=== PATIENT | male | born 1965 | race African-American/Black ===

== ENCOUNTER 2021-01-15 17:19 | Emergency (ER) | payer BC, OTHER ==
[2021-01-15] MEDS ORDERED: Sodium Chloride 0.9% 2.5 ML Syringe FLUSH PRN (17:20)
[2021-01-15] MEDS ORDERED: Sodium Chloride 0.9% 10 ML Syringe FLUSH PRN (17:20)
--- NOTE | 2021-01-15 17:23 | EDM.PDOC ---
ED HPI GENERAL MEDICAL PROBLEM - General Chief Complaint: Abdominal Pain Stated Complaint: ABDOMINAL PAIN, WALK IN CLINIC REFERRAL Time Seen by Provider: 01/15/21 17:20 Source of Information: Reports: Patient History Limitations: Reports: No Limitations - History of Present Illness INITIAL COMMENTS - FREE TEXT/NARRATIVE: HISTORY AND PHYSICAL: History of present illness: Patient is a 55-year-old male who presents to the emergency room with complaints of right lower quadrant pain x1 week. He states the pain is progressively gotten worse. He attempted to go to the walk-in clinic but was informed he should come to the emergency room to rule out appendicitis. Patient denies any fever, chills, headache, change in vision, syncope or near syncope. Denies any chest pain, back pain, shortness of breath or cough. Denies any nausea, vomiting, diarrhea, constipation or dysuria. Has not noted any blood in urine or stool. Denies any testicular pain, redness or swelling. Patient has been eating and drinking appropriately. Review of systems: As per history of present illness and below otherwise all systems reviewed and negative. Past medical history: As per history of present illness and as reviewed below otherwise noncontributory. Surgical history: As per history of present illness and as reviewed below otherwise noncontributory. Social history: See social history for further information Family history: As per history of present illness and as reviewed below otherwise noncontributory. Physical exam: General: Well developed and well nourished 55 year old male. Alert and orientated x 3. Nontoxic in appearance and in no acute distress. Vital signs are stable and have been reviewed by me. Nursing notes were reviewed. HEENT: Atraumatic, normocephalic, pupils equal and reactive bilaterally, negative for conjunctival pallor or scleral icterus, mucous membranes moist, trachea midline. No drooling or trismus noted. No meningeal signs. No hot potato voice noted. Lungs: Clear to auscultation bilaterally. No wheezes, rales, or rhonchi. Chest nontender. Normal work of breathing, no accessory muscles used. Heart: S1S2, regular rate and rhythm without overt murmur, gallops, or rubs. No JVD. No peripheral edema Abdomen: Soft, nondistended, right sided abd tenderness without rebound tenderness. Normoactive bowel sounds. Negative for masses or costovertebral tenderness. Pelvis: Stable nontender. Skin: Intact, warm, dry. No lesions or rashes noted. Hematologic: No petechiae or purpra. Mucosa appropriate color and normal nail bed color and refill. Extremities: Atraumatic, moves all extremities per self without difficulty or deficits, negative for cords or calf pain. Neurovascular unremarkable. Neuro: Awake, alert, oriented. Cranial nerves II through XII unremarkable. Cerebellum unremarkable. Motor and sensory unremarkable throughout. Exam nonfocal. Psychiatric: Mood and affect are appropriate. Normal thought process. Answering questions appropriately. Notes: *This patient was seen and evaluated during the 2019 SARS-CoV-2 novel coronavirus pandemic period. Community viral transmission is ongoing at time of this encounter and the emergency department is operating under pandemic response procedures. Lab work is unremarkable. CT shows a 1.7 cm left renal calculus causing moderate isolated upper pole hydronephrosis. An additional nonobstructive left renal calcification and an apparent miniscule nonobstructive right renal calcification. No evidence of diverticulitis, bowel obstruction or gross appendicitis. Borderline dilatation of the appendix appears to be related to mild distention by luminal gas, without periappendiceal changes. A 7 mm enhancing focus in the pancreatic head. A small neuroendocrine neoplasm should be excluded. Bladder wall thickening, partially related to under distention, however concerning for cystitis. I have talked with the patient about today's findings, in addition to providing specific details for plan of care. Reassessment at the time of disposition demonstrates that the patient is in no acute distress. The patient is stable for discharge, counseling was provided and we discussed in great detail signs and symptoms that would prompt them to return to the Emergency Department. Medication, follow up and supportive care measures were reviewed and discussed. Voices understanding and is agreeable to plan of care. Denies any further questions or concerns at this time. Diagnostics: CBC, CMP, Lipase, UA, CT abd/pelvis Therapeutics: IV fluids, Toradol Prescription: Tylenol #3 Impression: Kidney stone Plan: 1. You were evaluated today on an emergent basis. Your lab work is unremarkable. You do have a nonobstructing kidney stone on the left and right. Make sure you are drinking plenty of fluids to help this pass. You have borderline dilatation of the appendix although they are not calling this appendicitis. If your symptoms should worsen, new symptoms develop or any of the signs and symptoms we discussed should arise please return to the emergency room or call 911 (if needed). 2. You can alternate Tylenol and ibuprofen as needed for pain and fever management. 3. We encourage you to follow up with your primary care provider and/or recommended specialist in the next few days for re-evaluation and further care/management. Definitive disposition and diagnosis as appropriate pending reevaluation and review of above. RLQ Pain Score (Numeric/FACES): 7 - Related Data Allergies Allergy/AdvReac Type Severity Reaction Status Date / Time No Known Allergies Allergy Verified 01/15/21 17:38 Home Meds: Home Meds Acetaminophen/Codeine [Tylenol with Codeine No.3 300MG/30MG] 1 tab PO Q4H PRN #20 tab 01/15/21 [Rx] Omeprazole 1 tab PO DAILY 01/15/21 [History] Omeprazole 40 mg PO DAILY 01/15/21 [History] ED ROS GENERAL - Review of Systems Review Of Systems: Comprehensive ROS is negative, except as noted in HPI. ED EXAM, GI/ABD - Physical Exam Exam: See Below (See dictation) Course - Vital Signs Last Recorded V/S: Last Vital Signs Temp 98.2 F 01/15/21 18:59 Pulse 78 01/15/21 18:59 Resp 18 01/15/21 18:59 BP 116/72 01/15/21 18:59 Pulse Ox 97 01/15/21 18:59 - Orders/Labs/Meds Orders: Active Orders 24 hr Category Date Time Status Sodium Chloride 0.9% [Saline Flush] Med 01/15/21 17:20 Active 10 ml FLUSH ASDIRECTED PRN Sodium Chloride 0.9% [Saline Flush] Med 01/15/21 17:20 Active 2.5 ml FLUSH ASDIRECTED PRN Saline Lock Insert [OM.PC] Stat Oth 01/15/21 17:20 Ordered Medication Orders Sodium Chloride (Sodium Chloride 0.9% 10 Ml Syringe) 10 ml FLUSH ASDIRECTED PRN PRN Reason: Keep Vein Open Last Admin: 01/15/21 17:48 Dose: 10 ml Documented by: JAELYN Sodium Chloride (Sodium Chloride 0.9% 2.5 Ml Syringe) 2.5 ml FLUSH ASDIRECTED PRN PRN Reason: Keep Vein Open Last Admin: 01/15/21 17:48 Dose: 2.5 ml Documented by: [facility] Labs: Laboratory Tests 01/15/21 01/15/21 01/15/21 Range/Units 17:43 17:43 19:00 WBC 6.19 (4.0-11.0) K/uL RBC 5.77 (4.50-5.90) M/uL Hgb 15.4 (13.0-17.0) g/dL Hct 45.5 (38.0-50.0) % MCV 78.9 L (80.0-98.0) fL MCH 26.7 L (27.0-32.0) pg MCHC 33.8 (31.0-37.0) g/dL RDW Std Deviation 43.6 (28.0-62.0) fl RDW Coeff of Yogesh 15 (11.0-15.0) % Plt Count 271 (150-400) K/uL MPV 9.60 (7.40-12.00) fL Neut % (Auto) 38.0 L (48.0-80.0) % Lymph % (Auto) 53.3 H (16.0-40.0) % [place] % (Auto) 7.3 (0.0-15.0) % Eos % (Auto) 1.1 (0.0-7.0) % Baso % (Auto) 0.3 (0.0-1.5) % Neut # (Auto) 2.4 (1.4-5.7) K/uL Lymph # (Auto) 3.3 H (0.6-2.4) K/uL [place] # (Auto) 0.5 (0.0-0.8) K/uL Eos # (Auto) 0.1 (0.0-0.7) K/uL Baso # (Auto) 0.0 (0.0-0.1) K/uL Nucleated RBC % 0.0 /100WBC Nucleated RBCs # 0 K/uL Sodium 139 (136-148) mmol/L Potassium 4.1 (3.5-5.1) mmol/L Chloride 105 (98-107) mmol/L Carbon Dioxide 28.0 (21.0-32.0) mmol/L BUN 12 (7.0-18.0) mg/dL Creatinine 1.0 (0.8-1.3) mg/dL Est Cr Clr Drug Dosing 93.77 mL/min Estimated GFR (MDRD) > 60.0 ml/min Glucose 94 (74-106) mg/dL Calcium 8.7 (8.5-10.1) mg/dL Total Bilirubin 1.0 (0.2-1.0) mg/dL AST 36 (15-37) IU/L ALT 31 (14-63) IU/L Alkaline Phosphatase 82 (46-116) U/L Total Protein 7.3 (6.4-8.2) g/dL Albumin 3.9 (3.4-5.0) g/dL Globulin 3.4 (2.6-4.0) g/dL Albumin/Globulin Ratio 1.1 (0.9-1.6) Lipase 27 L (73-393) U/L Urine Color YELLOW Urine Appearance CLEAR Urine pH 6.5 (5.0-8.0) Ur Specific Crawford 1.025 (1.001-1.035) Urine Protein NEGATIVE (NEGATIVE) mg/dL Urine Glucose (UA) NEGATIVE (NEGATIVE) mg/dL Urine Ketones NEGATIVE (NEGATIVE) mg/dL Urine Occult Blood NEGATIVE (NEGATIVE) Urine Nitrite NEGATIVE (NEGATIVE) Urine Bilirubin NEGATIVE (NEGATIVE) Urine Urobilinogen 1.0 (<2.0) EU/dL Ur Leukocyte Esterase NEGATIVE (NEGATIVE) Meds: Medications Generic Name Dose Route Start Last Admin Trade Name Frenoy PRN Reason Stop Dose Admin Sodium Chloride 10 ml 01/15/21 17:20 01/15/21 17:48 Sodium Chloride 0.9% 10 Ml Syringe FLUSH 10 ml ASDIRECTED PRN Administration Keep Vein Open Sodium Chloride 2.5 ml 01/15/21 17:20 01/15/21 17:48 Sodium Chloride 0.9% 2.5 Ml Syringe FLUSH 2.5 ml ASDIRECTED PRN Administration Keep Vein Open Discontinued Medications Generic Name Dose Route Start Last Admin Trade Name Freq PRN Reason Stop Dose Admin Sodium Chloride 1,000 mls @ 999 mls/hr 01/15/21 17:43 01/15/21 17:47 Normal Saline IV 01/15/21 18:43 999 mls/hr STAT ONE Administration Iopamidol 100 ml 01/15/21 18:29 01/15/21 18:29 Iopamidol 755 Mg/Ml 500 Ml Multipack Bottle IVPUSH 01/15/21 18:30 100 ml ONETIME STA Administration Ketorolac Tromethamine 30 mg 01/15/21 17:43 01/15/21 17:47 Ketorolac 30 Mg/Ml Sdv IVPUSH 01/15/21 17:44 30 mg ONETIME ONE Administration Departure - Departure Time of Disposition: 19:34 Disposition: Home, Self-Care 01 Clinical Impression: Kidney stones - Discharge Information Prescriptions: Acetaminophen/Codeine [Tylenol with Codeine No.3 300MG/30MG] 1 tab PO Q4H PRN #20 tab PRN Reason: Pain (Severe 7-10) Instructions: Kidney Stones, [id number] Referrals: PCP,Not In Area [Primary Care Provider] - Forms: ED Department Discharge Additional Instructions: The following information is given to patients seen in the emergency department who are being discharged to home. This information is to outline your options for follow-up care. We provide all patients seen in our emergency department with a follow-up referral. The need for follow-up, as well as the timing and circumstances, are variable depending upon the specifics of your emergency department visit. If you don't have a primary care physician on staff, we will provide you with a referral. We always advise you to contact your personal physician following an emergency department visit to inform them of the circumstance of the visit and for follow-up with them and/or the need for any referrals to a consulting specialist. The emergency department will also refer you to a specialist when appropriate. This referral assures that you have the opportunity for follow-up care with a specialist. All of these measure are taken in an effort to provide you with optimal care, which includes your follow-up. Under all circumstances we always encourage you to contact your private physician who remains a resource for coordinating your care. When calling for follow-up care, please make the office aware that this follow-up is from your recent emergency room visit. If for any reason you are refused follow-up, please contact the [facility] Emergency Department at and asked to speak to the emergency department charge nurse. [facility] [address] [place] [id number] [facility] [address] [place] [address] Thank you for choosing the [facility] emergency department in [place] for your medical needs today. It was a pleasure caring for you. Today you were seen in the emergency department for abdominal pain. 1. You were evaluated today on an emergent basis. Your lab work is unremarkable. You do have a nonobstructing kidney stone on the left and right. Make sure you are drinking plenty of fluids to help this pass. You have borderline dilatation of the appendix although they are not calling this appendicitis. If your symptoms should worsen, new symptoms develop or any of the signs and symptoms we discussed should arise please return to the emergency room or call 911 (if needed). 2. You can alternate Tylenol and ibuprofen as needed for pain and fever management. 3. We encourage you to follow up with your primary care provider and/or recommended specialist in the next few days for re-evaluation and further care/management. Sepsis Event Note (ED) - Focused Exam Vital Signs: Vital Signs Temp Pulse Resp BP Pulse Ox 01/15/21 18:59 98.2 F 78 18 116/72 97 01/15/21 17:29 96.6 F L 67 18 128/82 95 - My Orders Last 24 Hours: My Active Orders 01/15/21 17:20 Sodium Chloride 0.9% [Saline Flush] 10 ml FLUSH ASDIRECTED PRN Sodium Chloride 0.9% [Saline Flush] 2.5 ml FLUSH ASDIRECTED PRN Saline Lock Insert [OM.PC] Stat - Assessment/Plan Last 24 Hours: My Active Orders 01/15/21 17:20 Sodium Chloride 0.9% [Saline Flush] 10 ml FLUSH ASDIRECTED PRN Sodium Chloride 0.9% [Saline Flush] 2.5 ml FLUSH ASDIRECTED PRN Saline Lock Insert [OM.PC] Stat
[2021-01-15] MEDS ORDERED: Ketorolac 30 MG/ML SDV IVPUSH ONE (17:43)
[2021-01-15] MEDS ORDERED: Sodium Chloride 0.9% 1,000 ML IV ONE (17:43)
[2021-01-15 18:14] LABS: BLOOD UREA NITROGEN,BUN 12 mg/dL (7.0-18.0); CHLORIDE,CL 105 mmol/L (98-107); GLUCOSE RANDOM 94 mg/dL (74-106); LIPASE 27 U/L (73-393); POTASSIUM,K 4.1 mmol/L (3.5-5.1); SODIUM,NA 139 mmol/L (136-148)
[2021-01-15] MEDS ORDERED: Iopamidol 755 MG/ML 500 ML Multipack Bottle IVPUSH STA (18:29)
--- NOTE | 2021-01-15 19:20 | CT ---
INDICATION: Right lower quadrant pain TECHNIQUE: CT abdomen and pelvis acquired without and with IV contrast. 100 mL of Isovue 370 administered. COMPARISON: None available FINDINGS: Lower chest: Unremarkable. Liver: A subcentimeter posterior right hepatic low-density lesion, too small to characterize, which could represent a small cyst. Spleen: Unremarkable. Pancreas: A 7 mm enhancing focus in the pancreatic head on image 64. Gallbladder and bile ducts: Unremarkable. Adrenal glands: Unremarkable. Kidneys: A 1.7 x 1.4 x 1.0 cm calculus in the left renal pelvic, causing moderate isolated hydronephrosis of the left renal upper pole. An additional 5 mm nonobstructive left renal calcification. An apparent miniscule nonobstructive right renal calcifications. No ureteral calcifications. GI tract: No bowel obstruction. Borderline caliber of the mid appendix is probably related to mild distention by luminal gas, without periappendiceal changes to suggest acute appendicitis. Scattered colonic diverticula without diverticulitis. A portion of the colonic splenic flexure is located posteromedial to the spleen. Vascular structures: Minor atherosclerotic changes. Lymph nodes: Unremarkable. Miscellaneous: No significant free fluid or free air. Pelvic Organs: Bladder wall thickening, partially related to under distension. An ill-defined focus of enhancement in the superior prostate is nonspecific. Bones: Unremarkable for age. Disc protrusions in the lumbar spine. IMPRESSION: A 1.7 cm left renal calculus causing moderate isolated upper pole hydronephrosis. An additional nonobstructive left renal calcification and an apparent miniscule nonobstructive right renal calcification. No evidence of diverticulitis, bowel obstruction or gross appendicitis. Borderline dilatation of the appendix appears to be related to mild distention by luminal gas, without periappendiceal changes. A 7 mm enhancing focus in the pancreatic head. A small neuroendocrine neoplasm should be excluded. Bladder wall thickening, partially related to under distention, however concerning for cystitis. Please note that all CT scans at this facility use dose modulation, iterative reconstruction, and/or weight-based dosing when appropriate to reduce radiation dose to as low as reasonably achievable. Dictated by Jonatan Gaston MD @ 01/15/2021 7:18:[address] Jonatan Gaston @ Jan 15 2021 7:18PM
== END 2021-01-15 19:55 | disposition home or self-care (01) ==
LOC: MW.ED 17:19
DX: N13.2 Hydronephrosis with renal and ureteral calculous obstruction (principal)
CPT/HCPCS: 36415; 74178; 80053; 81003; 83690; 85025; 96374; 99284; J1885; J7030; Q9967

== ENCOUNTER 2021-06-15 19:17 | Observation (INO) | payer OTHER ==
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
--- NOTE | 2021-06-15 22:10 | EDM.PDOC ---
<Doug Chaves - Last Filed: 06/15/21 22:58> ED HPI GENERAL MEDICAL PROBLEM - General Chief Complaint: Respiratory Problem Stated Complaint: CHEMICAL EXPOSURE, SHORT OF BREATH, DIZZY Time Seen by Provider: 06/15/21 20:48 - Related Data Allergies Allergy/AdvReac Type Severity Reaction Status Date / Time No Known Allergies Allergy Verified 06/16/21 03:36 Home Meds: Home Meds Omeprazole 40 mg PO DAILY 01/15/21 [History] Course - Re-Assessments/Exams Free Text/Narrative Re-Assessment/Exam: 06/15/21 22:18 Carboxyhemoglobin is elevated to 15.7; 15-L NRB applied. 06/15/21 22:58 Patient accepted for admission to med-surg w/ tele Departure - Departure Time of Disposition: 22:58 Disposition: Home, Self-Care 01 Condition: Good Clinical Impression: Carbon monoxide poisoning Qualifiers: Encounter type: initial encounter Injury intent: accidental or unintentional Qualified Code(s): T58.91XA - Toxic effect of carbon monoxide from unspecified source, accidental (unintentional), initial encounter - Discharge Information Critical Care Note - Critical Care Note Total Time (mins): 35 <NaeemBreanna - Last Filed: 06/18/21 17:39> ED HPI GENERAL MEDICAL PROBLEM - General Source of Information: Reports: Patient History Limitations: Reports: No Limitations - History of Present Illness INITIAL COMMENTS - FREE TEXT/NARRATIVE: HISTORY AND PHYSICAL: History of present illness: Patient is a 56-year-old male who presents emergency room today with concern of heavy carbon monoxide exposure. Patient states that he was working and the back of an enclosed trailer/semi and states that they have the side panel open and the back door cracked open. Patient states that he was working in a diesel fumes/generator fumes (carbon monoxide) for approximately 2 to 1/2 hours. Patient states he started developing chest pain and headache. Patient states he came here to the emergency room because this was not going away even after getting out of the enclosed area. Patient states he does have some residual chest pain and headache at this time. Patient denies fever, chills, shortness of breath, or cough. Denies neck stiff ness, change in vision, syncope, or near syncope. Denies nausea, vomiting, abdominal pain, diarrhea, constipation, or dysuria. Has not noted any blood in urine or stool. Patient has been eating and drinking appropriately. Review of systems: As per history of present illness and below otherwise all systems reviewed and negative. Past medical history: As per history of present illness and as reviewed below otherwise noncontributory. Surgical history: As per history of present illness and as reviewed below otherwise noncontributory. Social history: See social history for further information Family history: As per history of present illness and as reviewed below otherwise noncontributory. Physical exam: General: Patient is alert, oriented, and in no acute distress. Patient sitting comfortably on exam table. Smells of exhaust fumes. Vitals stable and reviewed by me. HEENT: Atraumatic, normocephalic, pupils equal and reactive bilaterally, negative for conjunctival pallor or scleral icterus, mucous membranes moist, throat clear, neck supple, nontender, trachea midline. No drooling or trismus noted. No meningeal signs. No hot potato voice noted. Lungs: Clear to auscultation, breath sounds equal bilaterally, chest nontender. Heart: S1S2, regular rate and rhythm without overt murmur Abdomen: Soft, nondistended, nontender. Negative for masses or hepatosplenomegaly. Negative for costovertebral tenderness. Pelvis: Stable nontender. Genitourinary: Deferred. Rectal: Deferred. Skin: Intact, warm, dry. No lesions or rashes noted. Extremities: Atraumatic, negative for cords or calf pain. Neurovascular unremarkable. Neuro: Awake, alert, oriented. Cranial nerves II through XII unremarkable. Cerebellum unremarkable. Motor and sensory unremarkable throughout. Exam nonfocal. Medical Decision Making: Patient is a 56-year-old male who presents emergency room today with concern of carbon monoxide exposure and in a small enclosed area for about 2 to 1/2 hours now with associated headache and chest pain. Upon arrival to the ED, patient is vitally stable and well-appearing on exam. Was initially triaged to the waiting room area, however, after my examination, poison control was contacted. Per their recommendation, will taken CBC, BMP, carboxyhemoglobin, arterial blood gas, troponin, and lactic acid. Will also obtain a 1 view chest x-ray. Dr. Chaves assumed care of patient will follow remaining diagnostics and disposition for patient. Diagnostics: CBC, BMP, Carboxyhgb, ABG, Lactate, Trop Therapeutics: Prescription: Impression: Carbon monoxide exposure Plan: Definitive disposition and diagnosis as appropriate pending reevaluation and review of above. Chest Pain Score (Numeric/FACES): 4 Past Medical History - Past Health History Medical/Surgical History: Denies Medical/Surgical History Gastrointestinal History: Reports: GERD Other Neuro History: GBS (guillain barre syndrome) - Infectious Disease History Infectious Disease History: Reports: None Social & Family History - Family History Family Medical History: No Pertinent Family History ED ROS GENERAL - Review of Systems Review Of Systems: Comprehensive ROS is negative, except as noted in HPI. ED EXAM, GENERAL - Physical Exam Exam: See Below (see dictation) Course - Vital Signs Last Recorded V/S: Last Vital Signs Temp 97.6 F 06/16/21 12:00 Pulse 68 06/16/21 12:00 Resp 18 06/16/21 12:00 BP 139/75 06/16/21 12:00 Pulse Ox 100 06/16/21 12:00 - Orders/Labs/Meds Labs: Laboratory Tests 06/15/21 06/15/21 06/15/21 Range/Units 22:02 22:09 22:09 WBC 9.43 (4.0-11.0) K/uL RBC 5.57 (4.50-5.90) M/uL Hgb 14.9 (13.0-17.0) g/dL Hct 43.4 (38.0-50.0) % MCV 77.9 L (80.0-98.0) fL MCH 26.8 L (27.0-32.0) pg MCHC 34.3 (31.0-37.0) g/dL RDW Std Deviation 43.9 (28.0-62.0) fl RDW Coeff of Yogesh 15 (11.0-15.0) % Plt Count 223 (150-400) K/uL MPV 9.50 (7.40-12.00) fL Neut % (Auto) 56.4 (48.0-80.0) % Lymph % (Auto) 36.6 (16.0-40.0) % [place] % (Auto) 6.2 (0.0-15.0) % Eos % (Auto) 0.6 (0.0-7.0) % Baso % (Auto) 0.2 (0.0-1.5) % Neut # (Auto) 5.3 (1.4-5.7) K/uL Lymph # (Auto) 3.5 H (0.6-2.4) K/uL [place] # (Auto) 0.6 (0.0-0.8) K/uL Eos # (Auto) 0.1 (0.0-0.7) K/uL Baso # (Auto) 0.0 (0.0-0.1) K/uL Nucleated RBC % 0.0 /100WBC Nucleated RBCs # 0 K/uL ABG pH 7.46 H (7.35-7.45) ABG pCO2 33 L (35-45) mmHG ABG pO2 94 (80-105) mmHG ABG HCO3 24 (22-26) mEq/L ABG Total CO2 20.9 L (23-27) mmol/L ABG Base Excess 0.8 (-2.0-3.0) ABG Carboxyhemoglobin 15.7 H (0-15) % Sodium (136-148) mmol/L Potassium (3.5-5.1) mmol/L Chloride (98-107) mmol/L Carbon Dioxide (21.0-32.0) mmol/L BUN (7.0-18.0) mg/dL Creatinine (0.8-1.3) mg/dL Est Cr Clr Drug Dosing mL/min Estimated GFR (MDRD) ml/min Glucose (74-106) mg/dL Lactic Acid (0.4-2.0) mmol/L Calcium (8.5-10.1) mg/dL Troponin I (0.000-0.056) ng/mL SARS-CoV-2 RNA (SUZETTE) (NEGATIVE) 06/15/21 06/15/21 06/15/21 Range/Units 22:09 22:09 22:48 WBC (4.0-11.0) K/uL RBC (4.50-5.90) M/uL Hgb (13.0-17.0) g/dL Hct (38.0-50.0) % MCV (80.0-98.0) fL MCH (27.0-32.0) pg MCHC (31.0-37.0) g/dL RDW Std Deviation (28.0-62.0) fl RDW Coeff of Yogesh (11.0-15.0) % Plt Count (150-400) K/uL MPV (7.40-12.00) fL Neut % (Auto) (48.0-80.0) % Lymph % (Auto) (16.0-40.0) % [place] % (Auto) (0.0-15.0) % Eos % (Auto) (0.0-7.0) % Baso % (Auto) (0.0-1.5) % Neut # (Auto) (1.4-5.7) K/uL Lymph # (Auto) (0.6-2.4) K/uL [place] # (Auto) (0.0-0.8) K/uL Eos # (Auto) (0.0-0.7) K/uL Baso # (Auto) (0.0-0.1) K/uL Nucleated RBC % /100WBC Nucleated RBCs # K/uL ABG pH (7.35-7.45) ABG pCO2 (35-45) mmHG ABG pO2 (80-105) mmHG ABG HCO3 (22-26) mEq/L ABG Total CO2 (23-27) mmol/L ABG Base Excess (-2.0-3.0) ABG Carboxyhemoglobin (0-15) % Sodium 140 (136-148) mmol/L Potassium 3.5 (3.5-5.1) mmol/L Chloride 104 (98-107) mmol/L Carbon Dioxide 23.6 (21.0-32.0) mmol/L BUN 16 (7.0-18.0) mg/dL Creatinine 1.1 (0.8-1.3) mg/dL Est Cr Clr Drug Dosing 84.26 mL/min Estimated GFR (MDRD) > 60.0 ml/min Glucose 116 H (74-106) mg/dL Lactic Acid 1.1 (0.4-2.0) mmol/L Calcium 9.1 (8.5-10.1) mg/dL Troponin I < 0.050 (0.000-0.056) ng/mL SARS-CoV-2 RNA (SUZETTE) NEGATIVE (NEGATIVE) Meds: Medications Discontinued Medications Generic Name Dose Route Start Last Admin Trade Name Freq PRN Reason Stop Dose Admin Acetaminophen 650 mg 06/16/21 00:09 Acetaminophen 325 Mg Tab PO Q4H PRN Pain (Mild 1-3)/fever Enoxaparin Sodium 40 mg 06/16/21 00:15 06/16/21 01:05 Enoxaparin 40 Mg/0.4 Ml Syringe SUBCUT 40 mg Q24H BINU Administration Omeprazole 40 mg 06/16/21 09:00 06/16/21 08:18 Omeprazole 20 Mg Cap.Cr PO 40 mg ACBREAKFAST BINU Administration Ondansetron HCl 8 mg 06/16/21 00:09 Ondansetron 8 Mg Tab.Dis PO Q4H PRN nausea, able to take PO Sepsis Event Note (ED) - Evaluation Sepsis Screening Result: No Definite Risk
[2021-06-15 22:43] LABS: BLOOD UREA NITROGEN,BUN 16 mg/dL (7.0-18.0); CARBON DIOXIDE,CO2 23.6 mmol/L (21.0-32.0); CHLORIDE,CL 104 mmol/L (98-107); GLUCOSE RANDOM 116 mg/dL (74-106); POTASSIUM,K 3.5 mmol/L (3.5-5.1); SODIUM,NA 140 mmol/L (136-148)
--- NOTE | 2021-06-16 00:05 | PCM.HP.2 ---
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 no hx of chest pains previous and used to heavy exertion. no hx covid or flu felt fine all day until symptoms started. [place] syndrome in remote past. no hx of hypertension but fairly hypertensive in e.r. chest pain better over last 2 hours with o2 at 15 liters nrb mask. no hx of cv risk and or cva. visual problems or other resp distress. smokes pack every 2-3 days . vs high b.p 160/96 p.e normal male no distress on o2 at 15 liters. labs and abg see report. carboxy/co level 15.7 . chest xray normal . covid screen normal asses: 1// carboxic.o. 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 plan : cont o2 by nrb mask at [address] then decrease to 10 liters if symptoms subsiding then 5 liters at 8 hours. 2// reassess b.p. patient desires early dc . boh Onset of Symptoms: Reports: Today Duration of Symptoms: Reports: Hour(s): (6) Location: Reports: Head, Chest Quality: Reports: Burning Worsens with: Reports: Breathing Associated Symptoms: Reports: No Other Symptoms. Denies: Nausea/Vomiting Chest Pain Score (Numeric/FACES): 4 - Related Data Allergies/Adverse Reactions: Allergies Allergy/AdvReac Type Severity Reaction Status Date / Time No Known Allergies Allergy Verified 06/15/21 19:36 Home Medications: Home Meds Acetaminophen/Codeine [Tylenol with Codeine No.3 300MG/30MG] 1 tab PO Q4H PRN #2 0 tab 01/15/21 [Rx] Omeprazole 1 tab PO DAILY 01/15/21 [History] Omeprazole 40 mg PO DAILY 01/15/21 [History] Past Medical History - Past Health History Medical/Surgical History: Denies Medical/Surgical History Gastrointestinal History: Reports: GERD Other Neuro History: GBS (guillain barre syndrome) - Infectious Disease History Infectious Disease History: Reports: None Social & Family History - Family History Family Medical History: No Pertinent Family History H&P Review of Systems - Review of Systems: Review Of Systems: See Below General: Reports: No Symptoms Pulmonary: Reports: Shortness of Breath Cardiovascular: Reports: Chest Pain Gastrointestinal: Reports: No Symptoms Genitourinary: Reports: No Symptoms Musculoskeletal: Reports: No Symptoms Skin: Reports: No Symptoms Psychiatric: Reports: No Symptoms Neurological: Reports: No Symptoms, Dizziness, Headache Hematologic/Lymphatic: Reports: No Symptoms Immunologic: Reports: No Symptoms Exam - Exam Exam: See Below - Vital Signs Vital Signs: Last Vital Signs Temp 36.1 C 06/15/21 19:36 Pulse 73 06/15/21 23:25 Resp 16 06/15/21 19:36 BP 147/95 H 06/15/21 23:25 Pulse Ox 100 06/15/21 23:25 Weight: 108.409 kg - Exam General: Alert, Oriented, 4 HEENT: PERRLA, Hearing Intact, Mucosa Moist & [place], Nares Patent, Normal Nasal Septum, Posterior Pharynx Clear, Conjunctiva Clear, EOMI, EACs Clear, TMs Clear Neck: Supple, Trachea Midline, 2 Lungs: Clear to Auscultation, Normal Respiratory Effort Cardiovascular: Regular Rate, Regular Rhythm GI/Abdominal Exam: Normal Bowel Sounds, Soft, Non-Tender, No Organomegaly, No Distention, No Abnormal Bruit, No Mass, Pelvis Stable (Male) Exam: No Hernia, Normal Inspection, Normal Prostate, Circumcised Rectal (Males) Exam: Normal Exam, Normal Rectal Tone, Prostate Normal Back Exam: Normal Inspection, Full Range of Motion, NT Extremities: Normal Inspection, Normal Range of Motion, Non-Tender, No Pedal [place] ma, Normal Capillary Refill Skin: Warm, Dry, Intact Neurological: Cranial Nerves Intact, Reflexes Equal Bilateral Neuro Extensive - Mental Status: Alert, Oriented x3, Normal Mood/Affect, Normal Cognition Neuro Extensive - Motor, Sensory, Reflexes: CN II-XII Intact, Normal Gait, Normal Reflexes Psychiatric: Alert, Normal Affect, Normal Mood - Patient Data Lab Results Last 24 hrs: Laboratory Results - last 24 hr 12/26/21 12/26/21 12/26/21 Range/Units 22:02 22:09 22:09 WBC 9.43 (4.0-11.0) K/uL RBC 5.57 (4.50-5.90) M/uL Hgb 14.9 (13.0-17.0) g/dL Hct 43.4 (38.0-50.0) % MCV 77.9 L (80.0-98.0) fL MCH 26.8 L (27.0-32.0) pg MCHC 34.3 (31.0-37.0) g/dL RDW Std Deviation 43.9 (28.0-62.0) fl RDW Coeff of Yogesh 15 (11.0-15.0) % Plt Count 223 (150-400) K/uL MPV 9.50 (7.40-12.00) fL Neut % (Auto) 56.4 (48.0-80.0) % Lymph % (Auto) 36.6 (16.0-40.0) % [place] % (Auto) 6.2 (0.0-15.0) % Eos % (Auto) 0.6 (0.0-7.0) % Baso % (Auto) 0.2 (0.0-1.5) % Neut # (Auto) 5.3 (1.4-5.7) K/uL Lymph # (Auto) 3.5 H (0.6-2.4) K/uL [place] # (Auto) 0.6 (0.0-0.8) K/uL Eos # (Auto) 0.1 (0.0-0.7) K/uL Baso # (Auto) 0.0 (0.0-0.1) K/uL Nucleated RBC % 0.0 /100WBC Nucleated RBCs # 0 K/uL ABG pH 7.46 H (7.35-7.45) ABG pCO2 33 L (35-45) mmHG ABG pO2 94 (80-105) mmHG ABG HCO3 24 (22-26) mEq/L ABG Total CO2 20.9 L (23-27) mmol/L ABG Base Excess 0.8 (-2.0-3.0) ABG Carboxyhemoglobin 15.7 H (0-15) % Sodium (136-148) mmol/L Potassium (3.5-5.1) mmol/L Chloride (98-107) mmol/L Carbon Dioxide (21.0-32.0) mmol/L BUN (7.0-18.0) mg/dL Creatinine (0.8-1.3) mg/dL Est Cr Clr Drug Dosing mL/min Estimated GFR (MDRD) ml/min Glucose (74-106) mg/dL Lactic Acid (0.4-2.0) mmol/L Calcium (8.5-10.1) mg/dL Troponin I (0.000-0.056) ng/mL SARS-CoV-2 RNA (SUZETTE) (NEGATIVE) 06/15/21 06/15/21 06/15/21 Range/Units 22:09 22:09 22:48 WBC (4.0-11.0) K/uL RBC (4.50-5.90) M/uL Hgb (13.0-17.0) g/dL Hct (38.0-50.0) % MCV (80.0-98.0) fL MCH (27.0-32.0) pg MCHC (31.0-37.0) g/dL RDW Std Deviation (28.0-62.0) fl RDW Coeff of Yogesh (11.0-15.0) % Plt Count (150-400) K/uL MPV (7.40-12.00) fL Neut % (Auto) (48.0-80.0) % Lymph % (Auto) (16.0-40.0) % [place] % (Auto) (0.0-15.0) % Eos % (Auto) (0.0-7.0) % Baso % (Auto) (0.0-1.5) % Neut # (Auto) (1.4-5.7) K/uL Lymph # (Auto) (0.6-2.4) K/uL [place] # (Auto) (0.0-0.8) K/uL Eos # (Auto) (0.0-0.7) K/uL Baso # (Auto) (0.0-0.1) K/uL Nucleated RBC % /100WBC Nucleated RBCs # K/uL ABG pH (7.35-7.45) ABG pCO2 (35-45) mmHG ABG pO2 (80-105) mmHG ABG HCO3 (22-26) mEq/L ABG Total CO2 (23-27) mmol/L ABG Base Excess (-2.0-3.0) ABG Carboxyhemoglobin (0-15) % Sodium 140 (136-148) mmol/L Potassium 3.5 (3.5-5.1) mmol/L Chloride 104 (98-107) mmol/L Carbon Dioxide 23.6 (21.0-32.0) mmol/L BUN 16 (7.0-18.0) mg/dL Creatinine 1.1 (0.8-1.3) mg/dL Est Cr Clr Drug Dosing 84.26 mL/min Estimated GFR (MDRD) > 60.0 ml/min Glucose 116 H (74-106) mg/dL Lactic Acid 1.1 (0.4-2.0) mmol/L Calcium 9.1 (8.5-10.1) mg/dL Troponin I < 0.050 (0.000-0.056) ng/mL SARS-CoV-2 RNA (SUZETTE) NEGATIVE (NEGATIVE) Result Diagrams: 06/15/21 22:09 06/15/21 22:09 Sepsis Event Note - Evaluation Sepsis Screening Result: No Definite Risk - Focused Exam Vital Signs: Vital Signs Temp Pulse Resp BP Pulse Ox 06/15/21 23:25 73 147/95 H 100 06/15/21 22:06 99 06/15/21 21:21 94 97 06/15/21 19:36 36.1 C 100 16 172/89 H 96 - Problem List (1) Elevated blood pressure reading SNOMED Code(s): 34619946 ICD Code: R03.0 - ELEVATED BLOOD-PRESSURE READING, W/O DIAGNOSIS OF HTN Status: Acute Priority: Medium Current Visit: Yes Onset Date: ~06/16/21 (2) Carbon monoxide poisoning SNOMED Code(s): 13369613 ICD Code: T58.91XA - TOXIC EFFECT OF CARB MONX FROM UNSP SOURCE, ACC, INIT Status: Acute Priority: High Current Visit: Yes Onset Date: ~06/16/21 Qualifiers: Encounter type: initial encounter Injury intent: accidental or unintentional Qualified Code(s): T58.91XA - Toxic effect of carbon monoxide from unspecified source, accidental (unintentional), initial encounter (3) GERD (gastroesophageal reflux disease) SNOMED Code(s): 808211513 ICD Code: K21.9 - GASTRO-ESOPHAGEAL REFLUX DISEASE WITHOUT ESOPHAGITIS Status: Acute Priority: Low Current Visit: No Onset Date: ~06/16/21 Qualifiers: Esophagitis presence: without esophagitis Qualified Code(s): K21.9 - Gastro-esophageal reflux disease without esophagitis Problem List Initiated/Reviewed/Updated: Yes Orders Last 24hrs: Active Orders 24 hr Category Date Time Status Patient Status [ADT] Routine ADT 06/15/21 23:01 Active LACTIC ACID [CHEM] Routine Lab 06/16/21 01:00 Ordered TROPONIN I [CHEM] Routine Lab 06/16/21 01:00 Ordered Assessment/Plan Comment:: 06/15/21 56 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 no hx of chest pains previous and used to heavy exertion. no hx covid or flu felt fine all day until symptoms started. [place] syndrome in remote past. no hx of hypertension but fairly hypertensive in e.r. chest pain better over last 2 hours with o2 at 15 liters nrb mask. no hx of cv risk and or cva. visual problems or other resp distress. smokes pack every 2-3 days . vs high b.p 160/96 p.e normal male no distress on o2 at 15 liters. labs and abg see report. carboxy/co level 15.7 . chest xray normal . covid screen normal asses: 1// carboxic.o. 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 plan : cont o2 by nrb mask at [address] then decrease to 10 liters if symptoms subsiding then 5 liters at 8 hours. 2// reassess b.p. patient desires early dc . boh - Mortality Measure Prognosis:: Good
[2021-06-16] MEDS ORDERED: Acetaminophen 325 MG Tab PO PRN (00:09)
[2021-06-16] MEDS ORDERED: Ondansetron 8 MG Tab.DIS PO PRN (00:09)
[2021-06-16] MEDS ORDERED: Enoxaparin 40 MG/0.4 ML Syringe SUBCUT SCH (00:15)
[2021-06-16] MEDS ORDERED: Non-Formulary Medication 1 Each (Omeprazole [Omeprazole] 20 MG Capsule.Dr) PO SCH (09:00)
[2021-06-16] MEDS ORDERED: Omeprazole 20 MG Cap.CR PO SCH (09:00)
--- NOTE | 2021-06-16 13:58 | PCM.DCSUM1 ---
Discharge Summary - Hospital Course Brief History: 56 year old healthy male working in generator warmed area (semi trailer) ,. with severe headache a nd chest pains that did not go away after 2 hours of non exposure. no hx of chest pains previous and used to heavy exertion. no hx covid or flu felt fine all day until symptoms started. [place] syndrome in remote past. no hx of hypertension but fairly hypertensive in e.r. chest pain better over last 2 hours with o2 at 15 liters nrb mask. no hx of cv risk and or cva. visual problems or other resp distress. smokes pack every 2-3 days . vs high b.p 160/96 - Discharge Data Discharge Date: 06/16/21 Discharge Disposition: Home, Self-Care 01 Condition: Stable - Referral to Home Health Primary Care Physician: PCP None - Discharge Diagnosis/Problem(s) (1) Carbon monoxide poisoning SNOMED Code(s): 86997927 ICD Code: T58.91XA - TOXIC EFFECT OF CARB MONX FROM UNSP SOURCE, ACC, INIT Status: Acute Priority: High Current Visit: Yes Onset Date: ~06/16/21 Qualifiers: Encounter type: initial encounter Injury intent: accidental or unintentional Qualified Code(s): T58.91XA - Toxic effect of carbon monoxide from unspecified source, accidental (unintentional), initial encounter (2) Elevated blood pressure reading SNOMED Code(s): 74131788 ICD Code: R03.0 - ELEVATED BLOOD-PRESSURE READING, W/O DIAGNOSIS OF HTN Status: Acute Priority: Medium Current Visit: Yes Onset Date: ~06/16/21 - Patient Summary/Data Hospital Course: Admission diagnoses Carbon monoxide poisoning Discharge diagnoses Carbon oxide poisoning resolved Baljit was admitted secondary to carbon oxide poisoning from a generator he was using an truck. Patient was treated with 100% oxygen carboxyhemoglobin noted to be 15.7. Repeat today 2.2. Symptoms have dissipated and he is feeling much improved today. Significant other at bedside. Patient denies any headache chest pain shortness of breath or lightheadedness. He is alert and oriented and has been up ambulating within his room. He is quite eager to be discharged home. pvc monitor has noted sinus rhythm with no ectopy. Repeat EKG per poison control reviewed sinus rhythm with no ectopy rates in the 70s. Patient will be discharged home today counseled on not using generator within a trailer enclosed space. Counseled on having serviced or carbon monoxide detector. Patient will have follow-up in 7 to 10 days with PCP. He is to return to the ER or clinic sooner if concerns should arise. - Patient Instructions Diet: Regular Diet as Tolerated Activity: No Strenuous Activities, Rest and Relax Today Driving: Do Not Drive Showering/Bathing: May Shower Notify Provider of: Fever, Increased Pain, Swelling and Redness, Drainage, Nausea and/or Vomiting - Discharge Plan *PRESCRIPTION DRUG MONITORING PROGRAM REVIEWED*: Not Applicable *COPY OF PRESCRIPTION DRUG MONITORING REPORT IN PATIENT FATOUMATA: Not Applicable Home Medications: Home Meds Omeprazole 40 mg PO DAILY 01/15/21 [History] Oxygen Therapy Mode: Room Air Patient Handouts: Carbon Monoxide Poisoning, [id number], Preventing Carbon Monoxide Poisoning, How to Take Your Blood Pressure, [id number], Hypertension, Adult, [id number], Preventing Hypertension, Managing Your Hypertension - Discharge Summary/Plan Comment DC Time >30 min.: No Total # of Minutes for Discharge Time: 20 - Patient Data Vitals - Most Recent: Last Vital Signs Temp 96.7 F L 06/16/21 08:46 Pulse 71 06/16/21 08:46 Resp 20 06/16/21 08:46 BP 141/73 H 06/16/21 08:46 Pulse Ox 91 L 06/16/21 08:46 Weight - Most Recent: 105.324 kg Lab Results - Last 24 hrs: Laboratory Results - last 24 hr 06/15/21 06/15/21 06/15/21 Range/Units 22:02 22:09 22:09 WBC 9.43 (4.0-11.0) K/uL RBC 5.57 (4.50-5.90) M/uL Hgb 14.9 (13.0-17.0) g/dL Hct 43.4 (38.0-50.0) % MCV 77.9 L (80.0-98.0) fL MCH 26.8 L (27.0-32.0) pg MCHC 34.3 (31.0-37.0) g/dL RDW Std Deviation 43.9 (28.0-62.0) fl RDW Coeff of Yogesh 15 (11.0-15.0) % Plt Count 223 (150-400) K/uL MPV 9.50 (7.40-12.00) fL Neut % (Auto) 56.4 (48.0-80.0) % Lymph % (Auto) 36.6 (16.0-40.0) % [place] % (Auto) 6.2 (0.0-15.0) % Eos % (Auto) 0.6 (0.0-7.0) % Baso % (Auto) 0.2 (0.0-1.5) % Neut # (Auto) 5.3 (1.4-5.7) K/uL Lymph # (Auto) 3.5 H (0.6-2.4) K/uL Tama # (Auto) 0.6 (0.0-0.8) K/uL Eos # (Auto) 0.1 (0.0-0.7) K/uL Baso # (Auto) 0.0 (0.0-0.1) K/uL Nucleated RBC % 0.0 /100WBC Nucleated RBCs # 0 K/uL ABG pH 7.46 H (7.35-7.45) ABG pCO2 33 L (35-45) mmHG ABG pO2 94 (80-105) mmHG ABG HCO3 24 (22-26) mEq/L ABG Total CO2 20.9 L (23-27) mmol/L ABG Base Excess 0.8 (-2.0-3.0) ABG Carboxyhemoglobin 15.7 H (0-15) % Sodium (136-148) mmol/L Potassium (3.5-5.1) mmol/L Chloride (98-107) mmol/L Carbon Dioxide (21.0-32.0) mmol/L BUN (7.0-18.0) mg/dL Creatinine (0.8-1.3) mg/dL Est Cr Clr Drug Dosing mL/min Estimated GFR (MDRD) ml/min Glucose (74-106) mg/dL Lactic Acid (0.4-2.0) mmol/L Calcium (8.5-10.1) mg/dL Troponin I (0.000-0.056) ng/mL SARS-CoV-2 RNA (SUZETTE) (NEGATIVE) 12/26/21 12/26/21 12/26/21 Range/Units 22:09 22:09 22:48 WBC (4.0-11.0) K/uL RBC (4.50-5.90) M/uL Hgb (13.0-17.0) g/dL Hct (38.0-50.0) % MCV (80.0-98.0) fL MCH (27.0-32.0) pg MCHC (31.0-37.0) g/dL RDW Std Deviation (28.0-62.0) fl RDW Coeff of Yogesh (11.0-15.0) % Plt Count (150-400) K/uL MPV (7.40-12.00) fL Neut % (Auto) (48.0-80.0) % Lymph % (Auto) (16.0-40.0) % [place] % (Auto) (0.0-15.0) % Eos % (Auto) (0.0-7.0) % Baso % (Auto) (0.0-1.5) % Neut # (Auto) (1.4-5.7) K/uL Lymph # (Auto) (0.6-2.4) K/uL Tama # (Auto) (0.0-0.8) K/uL Eos # (Auto) (0.0-0.7) K/uL Baso # (Auto) (0.0-0.1) K/uL Nucleated RBC % /100WBC Nucleated RBCs # K/uL ABG pH (7.35-7.45) ABG pCO2 (35-45) mmHG ABG pO2 (80-105) mmHG ABG HCO3 (22-26) mEq/L ABG Total CO2 (23-27) mmol/L ABG Base Excess (-2.0-3.0) ABG Carboxyhemoglobin (0-15) % Sodium 140 (136-148) mmol/L Potassium 3.5 (3.5-5.1) mmol/L Chloride 104 (98-107) mmol/L Carbon Dioxide 23.6 (21.0-32.0) mmol/L BUN 16 (7.0-18.0) mg/dL Creatinine 1.1 (0.8-1.3) mg/dL Est Cr Clr Drug Dosing 84.26 mL/min Estimated GFR (MDRD) > 60.0 ml/min Glucose 116 H (74-106) mg/dL Lactic Acid 1.1 (0.4-2.0) mmol/L Calcium 9.1 (8.5-10.1) mg/dL Troponin I < 0.050 (0.000-0.056) ng/mL SARS-CoV-2 RNA (SUZETTE) NEGATIVE (NEGATIVE) 06/16/21 06/16/21 06/16/21 Range/Units 01:03 01:03 11:09 WBC (4.0-11.0) K/uL RBC (4.50-5.90) M/uL Hgb (13.0-17.0) g/dL Hct (38.0-50.0) % MCV (80.0-98.0) fL MCH (27.0-32.0) pg MCHC (31.0-37.0) g/dL RDW Std Deviation (28.0-62.0) fl RDW Coeff of Yogesh (11.0-15.0) % Plt Count (150-400) K/uL MPV (7.40-12.00) fL Neut % (Auto) (48.0-80.0) % Lymph % (Auto) (16.0-40.0) % [place] % (Auto) (0.0-15.0) % Eos % (Auto) (0.0-7.0) % Baso % (Auto) (0.0-1.5) % Neut # (Auto) (1.4-5.7) K/uL Lymph # (Auto) (0.6-2.4) K/uL [place] # (Auto) (0.0-0.8) K/uL Eos # (Auto) (0.0-0.7) K/uL Baso # (Auto) (0.0-0.1) K/uL Nucleated RBC % /100WBC Nucleated RBCs # K/uL ABG pH (7.35-7.45) ABG pCO2 (35-45) mmHG ABG pO2 (80-105) mmHG ABG HCO3 (22-26) mEq/L ABG Total CO2 (23-27) mmol/L ABG Base Excess (-2.0-3.0) ABG Carboxyhemoglobin 2.2 (0-15) % Sodium (136-148) mmol/L Potassium (3.5-5.1) mmol/L Chloride (98-107) mmol/L Carbon Dioxide (21.0-32.0) mmol/L BUN (7.0-18.0) mg/dL Creatinine (0.8-1.3) mg/dL Est Cr Clr Drug Dosing mL/min Estimated GFR (MDRD) ml/min Glucose (74-106) mg/dL Lactic Acid 0.5 (0.4-2.0) mmol/L Calcium (8.5-10.1) mg/dL Troponin I < 0.050 (0.000-0.056) ng/mL SARS-CoV-2 RNA (SUZETTE) (NEGATIVE) Med Orders - Current: Current Medications Acetaminophen (Acetaminophen 325 Mg Tab) 650 mg PO Q4H PRN PRN Reason: Pain (Mild 1-3)/fever Enoxaparin Sodium (Enoxaparin 40 Mg/0.4 Ml Syringe) 40 mg SUBCUT Q24H [facility] Last Admin: 06/16/21 01:05 Dose: 40 mg Documented by: Omeprazole (Omeprazole 20 Mg Cap.Cr) 40 mg PO ACBREAKFAST [facility] Last Admin: 06/16/21 08:18 Dose: 40 mg Documented by: Ondansetron HCl (Ondansetron 8 Mg Tab.Dis) 8 mg PO Q4H PRN PRN Reason: nausea, able to take PO
--- NOTE | 2021-06-16 20:07 | PCM.EKG ---
#1 Interpretation EKG Date: 06/15/21 Time: 21:54 Rhythm: NSR Rate (Beats/Min): 82 [place]: Normal P-Wave: Present QRS: Normal ST-T: Normal QT: Normal OH/PQ Interval: 158 Comparison: NA - No Prior EKG EKG Interpretation Comments: normal EKG
== END 2021-06-16 15:25 | disposition home or self-care (01) ==
LOC: MW.ED 19:17 → MW.MS 23:01
PROVIDERS: ADMIT Pediatrics; ATTEND Pediatrics
DX: T58.91XA Toxic effect of carbon monoxide from unspecified source, accidental (unintentional), initial encounter (principal); R51.9 Headache, unspecified; G61.0 Guillain-Barre syndrome; F17.210 Nicotine dependence, cigarettes, uncomplicated; K21.9 Gastro-esophageal reflux disease without esophagitis; R03.0 Elevated blood-pressure reading, without diagnosis of hypertension; R07.9 Chest pain, unspecified; Z20.822 Contact with and (suspected) exposure to COVID-19; Z79.899 Other long term (current) drug therapy
CPT/HCPCS: 36415; 36600; 71045; 80048; 82375; 82803; 83605; 84484; 85025; 87635; 93005; 96372; 99284; A9270; J1650; U0002

== ENCOUNTER 2022-04-24 14:14 | Emergency (ER) | payer OTHER ==
[2022-04-24] MEDS ORDERED: Aspirin 81 MG Tab.Chew PO ONE (14:23)
[2022-04-24 15:45] LABS: CARBON DIOXIDE,CO2 29.4 mmol/L (21.0-32.0); POTASSIUM,K 3.8 mmol/L (3.5-5.1)
[2022-04-24] MEDS ORDERED: Magnesium Sulfate/Water 2 GM in Premix Bag 1 BAG IV ONE (15:49)
[2022-04-24] MEDS ORDERED: Heparin Sodium 5,000 Units/ML Vial IVPUSH STA (15:55)
[2022-04-24] MEDS ORDERED: Heparin Sodium/0.45% NaCl 500 ML IV SCH (16:00)
== END 2022-04-24 18:20 ==
LOC: MW.ED 14:14
DX: I21.4 Non-ST elevation (NSTEMI) myocardial infarction (principal); E83.42 Hypomagnesemia; Z72.0 Tobacco use; Z20.822 Contact with and (suspected) exposure to COVID-19
CPT/HCPCS: 36415; 71045; 80053; 83605; 83735; 84443; 84484; 85025; 85610; 85730; 87635; 93005; 96365; 96366; 96368; 96376; 99285; A9270; J1644; J3475; U0002